=== PATIENT | female | born 1975 ===

== ENCOUNTER 2017-06-07 09:06 | Emergency (ER) | payer BC ==
[2017-06-07 09:35] VITALS: BP 130/80
--- NOTE | 2017-06-07 10:33 | ED ---
Throat Pain/Nasal Congestion - HPI Summary HPI Summary: 41 female presents to with complaints of having on and off sinus issues for the past few months. Has not been treated. Last week had flu like symptoms however has since improved. States she feels well now but does have some frontal sinus pressure, post nasal drip and congestion, not as bad as usual however. Has not tried any medication. Denies fever and cough. Did have ENT appointment however did not go because her symptoms improved. No other complaints and no PMHx. - History of Current Complaint Chief Complaint: UCRespiratory Time Seen by Provider: 06/07/17 10:15 Hx Obtained From: Patient Onset/Duration: Sudden Onset, Lasting Weeks - intermittently, Resolved - slightly congested, however wanted to make sure she did not need treatment at this time Severity: Mild Associated Signs And Symptoms: Positive: Sinus Discomfort - frontal, Nasal Discharge Cough: None - Allergies/Home Medications Allergies/Adverse Reactions: Allergies Allergy/AdvReac Type Severity Reaction Status Date / Time No Known Allergies Allergy Verified 06/07/17 09:32 PMH/Surg Hx/FS Hx/Imm Hx Endocrine/Hematology History: Denies: Hx Diabetes Cardiovascular History: Denies: Hx Hypertension - Surgical History Surgery Procedure, Year, and Place: Jaw surgery - Immunization History Immunizations Up to Date: Yes Infectious Disease History: No Infectious Disease History: Denies: Traveled Outside the [place] in Last 30 Days - Social History Alcohol Use: Weekly Substance Use Type: Reports: None Smoking Status (MU): Never Smoked Tobacco Review of Systems Constitutional: Negative ENT: Other - sinus pressure at times Positive: Nasal Discharge Cardiovascular: Negative Respiratory: Negative Positive: Headache All Other Systems Reviewed And Are Negative: Yes Physical Exam Triage Information Reviewed: Yes Vital Signs On Initial Exam: Initial Vitals Temp Pulse Resp BP Pulse Ox 98.3 F 72 16 130/80 100 06/07/17 09:29 06/07/17 09:29 06/07/17 09:29 06/07/17 09:29 06/07/17 09:29 Vital Signs Reviewed: Yes Appearance: Positive: Well-Appearing, No Pain Distress, Well-Nourished Skin: Positive: Warm, Skin Color Reflects Adequate Perfusion, Dry. Negative: Cold, Tender, Erythema @ Head/Face: Positive: Normal Head/Face Inspection Eyes: Positive: Normal, EOMI, LAURA, Conjunctiva Clear ENT: Positive: Hearing grossly normal, Pharynx normal, TMs normal, Uvula midline. Negative: Pharyngeal erythema, Nasal congestion, Nasal drainage, Tonsillar swelling, Tonsillar exudate Dental: Negative: Percussion Tenderness @ - "a little bit" frontal b/l pressure , Cervical Lymphadenopathy Neck: Positive: Supple, Nontender, No Lymphadenopathy Respiratory/Lung Sounds: Positive: Clear to Auscultation, Breath Sounds Present. Negative: Rales, Rhonchi, Wheezes Cardiovascular: Positive: Normal, RRR, Pulses are Symmetrical in both Upper and Lower Extremities. Negative: Murmur, Rub Abdomen Description: Positive: Nontender Bowel Sounds: Positive: Present Musculoskeletal: Positive: Normal, Strength/ROM Intact Neurological: Positive: Normal, Sensory/Motor Intact, Alert, Oriented to Person Place, Time Diagnostics - Vital Signs Vital Signs Temp Pulse Resp BP Pulse Ox 06/07/17 09:29 98.3 F 72 16 130/80 100 - Laboratory Lab Statement: Any lab studies that have been ordered have been reviewed, and results considered in the medical decision making process. EENT Course/Dx - Course Course Of Treatment: patient appears to be improving from chronic sinusitis that keeps re-occurring. recommend symptomatic measures as does not appear to need any antibiotics at this time, symptoms appear to be improving per patient and physical exam/vital signs. daily antihistamine, flonase, saline rinses, humidifier, fluids and ibuprofen. aware of worsening signs and symptoms. follow up. no other concerns. - Differential Diagnoses Differential Diagnoses: Sinusitis, URI/Bronchitis - Diagnoses Provider Diagnoses: Sinusitis Discharge - Discharge Plan Condition: Good Disposition: HOME Prescriptions: Fluticasone NASAL SPRAY 50MCG* [Flonase NASAL SPRAY 50MCG*] 2 spray BOTH NARES DAILY #1 btl Patient Education Materials: Rhinosinusitis (ED), Warm Compress or Soak (ED) Referrals: [facility] [Outside] Additional Instructions: Use prescribed flonase. Recommend taking any anti-histamine daily, such as claritin-D or zyrtec-D. Also recommend use of mucinex and nasal saline rinses sold over the counter. Increase fluid intake. Extra pillow at bedtime. Hot showers and humidified air. Ibuprofen for discomfort/headache. Recommend follow up with PCP/ ENT as you had scheduled. Any new or worsening symptoms please seek medical attention.
== END 2017-06-07 10:38 | disposition home or self-care (01) ==
LOC: UCCORT 09:06
DX: J32.9 Chronic sinusitis, unspecified (principal)
CPT/HCPCS: 99202; G0463